=== PATIENT | male | born 1955 | race American Indian/Alaskan Native ===

== ENCOUNTER 2016-11-05 04:19 | Emergency (ER) | payer SELFPAY ==
[2016-11-05] MEDS ORDERED: MORPHINE IV ONE ×2 (04:51→05:52)
[2016-11-05] MEDS ORDERED: ZOFRAN IV ONE (04:51)
[2016-11-05] MEDS ORDERED: APRESOLINE IV ONE (04:51)
[2016-11-05] MEDS ORDERED: VALIUM IV ONE (04:52)
[2016-11-05 05:00] LABS: Basophils % (Auto) 0.5 % (0.0-1.8); Eosinophils % (Auto) 1.7 % (0.0-4.3); Hematocrit 27.9 % (35.5-45.6); Hemoglobin 8.7 gm/dl (11.8-15.2); Mean Corpuscular HGB Conc 31 % (32-34); Mean Corpuscular Volume 82 fl (84-94); Platelet Count 440 K/mm3 (140-440); Red Blood Count 3.42 M/mm3 (3.65-5.03); White Blood Count 7.3 K/mm3 (4.5-11.0)
[2016-11-05 05:03] LABS: Mean Corpuscular Hemoglobin 26 pg (28-32)
[2016-11-05 05:04] LABS: Red Cell Distribution Width 22.3 % (13.2-15.2)
[2016-11-05 05:15] LABS: Creatine Kinase MB 1.6 ng/mL (0.0-4.0)
[2016-11-05 05:16] LABS: Anion Gap 17 mmol/L; BUN/Creatinine Ratio 8.75; Blood Urea Nitrogen 7 mg/dL (9-20); Calcium 8.6 mg/dL (8.4-10.2); Carbon Dioxide 29 mmol/L (22-30); Chloride 92.3 mmol/L (98-107); Creatine Kinase 178 units/L (55-170); Glucose 103 mg/dL (75-100); Potassium 3.6 mmol/L (3.6-5.0); Sodium 135 mmol/L (137-145)
--- NOTE | 2016-11-05 05:36 | Emergency Department Report ---
HPI - General Chief Complaint: Chest Pain Time Seen by Provider: 11/05/16 04:55 - HPI HPI: The patient is a 61-year-old male who presents for evaluation of chest pain. The patient reports chest pain since 10am yesterday, nearly 20 hours prior to my evaluation, on and off, 10/10 in severity, aching in quality, exacerbated with movement of the arms, radiating to the back. The patient denies fever, trauma to the chest wall or the back, cough, dyspnea, syncope, hemoptysis, unilateral leg swelling, recent immobilization, history of DVT or PE, recent cancer. ED Past Medical Hx - Past Medical History Hx Hypertension: Yes (was on blood pressure medicine in the past) - Surgical History Additional Surgical History: HERNIA - Social History Smoking Status: Never Smoker Substance Use Type: Alcohol - Medications Home Medications: Home Medications Medication Instructions Recorded Confirmed Last Taken Type Cyclobenzaprine HCl [Flexeril 5 MG 5 mg PO Q8HR PRN #10 tab 11/05/16 Unknown Rx TAB] Hydrochlorothiazide [HCTZ] 25 mg PO QDAY #30 tablet 11/05/16 Unknown Rx ED Review of Systems ROS: Stated complaint: CHEST PAIN Other details as noted in HPI Constitutional: denies: fever ENT: denies: throat or neck pain Respiratory: denies: cough, shortness of breath Cardiovascular: reports chest pain Endocrine: denies unexplained weight loss or gain Gastrointestinal: denies: abdominal pain, nausea Genitourinary: denies: dysuria Musculoskeletal: denies: leg swelling Skin: denies: rash Neurological: denies: headache Hematological/Lymphatic: denies: easy bleeding or easy bruising Psych: denies sadness or hopelessness Physical Exam - Physical Exam Vital Signs: Vital Signs 11/05/16 11/05/16 11/05/16 04:46 05:11 05:21 Temperature 98.4 F Pulse Rate 73 70 Respiratory 24 24 24 Rate Blood Pressure 173/97 176/89 Blood Pressure 173/97 [Left] O2 Sat by Pulse 97 97 Oximetry Physical Exam: General: well-nourished, well-developed, no acute distress Head: Normocephalic, atraumatic Eyes: normal sclera ENT: Mucous membranes are pink and moist Neck: trachea midline, neck supple, No neck stiffness, no cervical adenopathy Respiratory: Breath sounds equal bilaterally, no wheezing, rales, or rhonchi Cardio: S1 and S2 present, no murmurs, rubs, gallops, capillary refill is brisk Abdomen: Normoactive bowel sounds, soft abdomen, no rigidity, no guarding or rebound tenderness Chest WALL/Back: No tenderness to palpation of the chest wall, chest pain is reproduced with internal rotation and adduction of the left arm at the shoulder joint, no CVA tenderness with percussion Musc: No pitting edema Skin: No rash Neuro: no facial drooping, normal speech Psych: Normal affect ED Course Vital Signs 11/05/16 11/05/16 11/05/16 04:46 05:11 05:21 Temperature 98.4 F Pulse Rate 73 70 Respiratory 24 24 24 Rate Blood Pressure 173/97 176/89 Blood Pressure 173/97 [Left] O2 Sat by Pulse 97 97 Oximetry ED Medical Decision Making - Lab Data Result diagrams: 11/05/16 04:43 11/05/16 04:43 - Medical Decision Making The patient was seen and examined by myself. The patient is placed on a property assessment monitor and continuous pulse ox. On initial evaluation, the patient was found to be in no distress. EKG was negative for findings suggestive of acute cardiac infarct. Labs and imaging are obtained. The patient is given IV Valium for his pain. Chest x-ray is negative for pneumothorax, focal consolidation, pulmonary vascular congestion, pleural effusion, or other obvious acute cardiopulmonary disease process. Lab results revealed low hemoglobin 8.7, and elevated BNP 500, and otherwise labs were non-concerning including nml level of troponin and renal function. The patient was reevaluated and reported that his symptoms were improved. As the patient has a MILO risk score of 0, and a well' s score of 0, with nml HR, the patient is at low risk of ACS or pulmonary emboli etiology of their symptoms. The patient is stable for discharge with outpatient follow-up. The patient is given follow-up and return instructions. The patient expressed understanding and agreed with the plan. The patient is discharged in stable condition. Critical care attestation.: If time is entered above; I have spent that time in minutes in the direct care of this critically ill patient, excluding procedure time. ED Disposition Clinical Impression: Acute chest pain, Uncontrolled hypertension Disposition: DISCHARGED TO HOME OR SELFCARE Is pt being admited?: No Does the pt Need Aspirin: No Instructions: Chest Pain (ED), Hypertension (ED) Prescriptions: Cyclobenzaprine HCl [Flexeril 5 MG TAB] 5 mg PO Q8HR PRN #10 tab PRN Reason: Pain Hydrochlorothiazide [HCTZ] 25 mg PO QDAY #30 tablet Referrals: PRIMARY CARE, [Primary Care Provider] - 3-5 Days Time of Disposition: 05:32
[2016-11-05 06:36] VITALS: BP 134/74
--- NOTE | 2016-11-05 07:15 | XRay Report ---
AP CHEST: HISTORY: chest pain AP view of the chest demonstrates a normal mediastinal and cardiac contour with clear lungs and normal bony and soft tissue structures. IMPRESSION: No acute process. No significant change since 05/11/16.
== END 2016-11-05 06:14 | disposition home or self-care (01) ==
LOC: ED 04:19
DX: R07.9 Chest pain, unspecified (principal); I10 Essential (primary) hypertension
CPT/HCPCS: 36415; 71010; 80048; 82550; 82553; 83880; 84484; 85025; 93005; 93010; 96374; 96375; 96376; 99285; J0360; J2270; J2405; J3360